=== PATIENT | female | born 1960 | race Caucasian/White ===

== ENCOUNTER → 2020-02-26 | Outpatient (CLI) | payer OTHER ==
[~2020-02-26] MED LIST: HYDROCHLOROTHIA25 M1 PO; HYDROCHLOROTHIA25 M2 PO; HYDROCODON-ACE1 EAC7 PO; IBUPROFEN 400400 M2 PO; LEVOTHYROXIN0.125 M1 PO; LISINOPRIL20 MG PO; SYNTHROID150 MCG PO; TYLENOL EXTRA500 MG PO; VALIUM5 MG PO
== END ==
LOC: LAB 12:08
PROVIDERS: ATTEND Hospitalist
DX: Z20.828 Contact with and (suspected) exposure to other viral communicable diseases (principal)